=== PATIENT | male | born 1970 | race Caucasian/White ===

== ENCOUNTER 2016-12-19 21:36 | Emergency (ER) | payer OTHER ==
[2016-12-19 22:06] LABS: BASOPHILS # (AUTO) 0.1 10^3/uL (0.0-0.1); BASOPHILS % (AUTO) 0.7 %; EOSINOPHILS # (AUTO) 0.2 10^3/uL (0.0-0.7); EOSINOPHILS % (AUTO) 1.9 %; HCT - HEMATOCRIT 43.6 % (42.0-52.0); HGB - HEMOGLOBIN 14.7 g/dL (14.0-18.0); LYMPHOCYTES # (AUTO) 2.2 10^3/uL (1.5-3.5); LYMPHOCYTES % (AUTO) 21.9 %; MEAN CORPUSCULAR HEMOGLOBIN 29.8 pg (27.0-31.0); MEAN CORPUSCULAR HGB CONC 33.7 g/dL (32.0-36.0); MEAN CORPUSCULAR VOLUME 88.3 fL (80.0-94.0); NEUTROPHILS # (AUTO) 6.7 10^3/uL (1.5-6.6); NEUTROPHILS % (AUTO) 65.5 %; NUCLEATED RED BLOOD CELLS AUTO 0.1 /100WBC; RED BLOOD COUNT 4.94 10^6/uL (4.70-6.10); RED CELL DISTRIBUTION WIDTH 14.9 % (12.0-15.0); UNCORRECTED WHITE BLOOD COUNT 10.2 x10^3/uL; WHITE BLOOD COUNT 10.2 x10^3/uL (4.8-10.8)
--- NOTE | 2016-12-19 22:06 | ED Physician Documentation ---
PD HPI BACK PAIN - Stated complaint Stated Complaint: LT BACK PX - Chief complaint Chief Complaint: Back Pain - History obtained from History obtained from: Patient, Friend - History of Present Illness Timing - onset: How many weeks ago (3) Timing - details: Gradual onset, Still present, Intermittant, Waxing and waning Location: Mid, Left Quality: Pain, Sharp, Tearing Associated symptoms: Other (increased frequency). No: Fever, Weakness, Numbness , Incontinent of urine, Unable to urinate Worsened by: Movement, Lifting, Palpation Similar symptoms before: No diagnosis, Work up / diagnostics Recently seen: Clinic - Additional information Additional information: Patient is a 46 year old male with no significant past medical history who is presenting to the emergency department for left flank pain. patient states that the symptoms have been going on for the last three weeks. Patient states that he saw his pmd who diagnosed him msk pain. patient states that it still is persisting. Patient denies any nausea, vomiting fever or chills but does state that he has increased frequency. Patient states that he was sneezing today and it was making his symptoms worse. Review of Systems Constitutional: denies: Fever, Chills Eyes: denies: Decreased vision Ears: denies: Ear pain, Drainage/discharge Nose: denies: Congestion Throat: denies: Sore throat Cardiac: denies: Chest pain / pressure, Palpitations Respiratory: denies: Dyspnea, Cough, Wheezing GI: denies: Nausea, Vomiting, Constipation, Diarrhea : reports: Frequency. denies: Dysuria, Incontinent, Discharge Skin: denies: Rash, Lesions, Abrasion (s) Musculoskeletal: reports: Back pain. denies: Extremity pain, Joint pain Immunocompromised: denies: Immunocompromised PD PAST MEDICAL HISTORY - Past Medical History Cardiovascular: Hypertension, High cholesterol Respiratory: Asthma, Sleep apnea, CPAP use GI: GERD : None HEENT: None Musculoskeletal: Other Derm: Psoriasis, Other - Past Surgical History Ortho: Other - Present Medications Home Medications: Ambulatory Orders Medication Instructions Recorded Confirmed Albuterol [Ventolin Hfa] 2 puffs INH Q4H PRN 08/30/13 08/30/13 Aspirin Chewable [[place] 81 mg PO DAILY 08/30/13 08/30/13 Aspirin] Divalproex Sodium [Depakote] 500 mg PO BID 08/30/13 08/30/13 Esomeprazole Magnesium [Nexium] 20 mg PO 08/30/13 08/30/13 Fluticasone 110 Mcg [Flovent] 1 puffs INH BID 08/30/13 08/30/13 Meloxicam [Mobic] 15 mg PO 08/30/13 08/30/13 Rizatriptan Benzoate [Maxalt] 10 mg PO PRN 08/30/13 09/12/13 Simvastatin [Zocor] 20 mg PO QPM 08/30/13 08/30/13 Verapamil HCl [Verapamil ER] 240 mg PO QPM 08/30/13 08/30/13 Sildenafil Citrate [Viagra] 100 mg PO 09/12/13 09/12/13 Lidocaine Patch 5% [Lidoderm Patch] 1 each TOP DAILY #10 patch 12/19/16 - Allergies Allergies/Adverse Reactions: Allergies Allergy/AdvReac Type Severity Reaction Status Date / Time No Known Drug Allergies Allergy Verified 12/19/16 21:43 PD ED PE NORMAL - Vitals Vital signs reviewed: Yes - General General: Alert and oriented X 3, No acute distress, Well developed/nourished - HEENT HEENT: Atraumatic, PERRL - Neck Neck: Supple, no meningeal sign - Cardiac Cardiac: RRR, No murmur - Respiratory Respiratory: No respiratory distress, Clear bilaterally - Abdomen Abdomen: Soft, Non distended - Derm Derm: Normal color, Warm and dry, No rash - Extremities Extremities: No deformity, Normal ROM s pain, No edema - Neuro Neuro: Alert and oriented X 3, No motor deficit, No sensory deficit, Normal speech - Psych Psych: Normal mood, Normal affect PD ED PE EXPANDED - HEENT HEENT: Dry mucous membranes - Back Back: Other (tenderness over left flank, and mid axillary region, no ecchymosis , no rash) Results - Vitals Vitals: Vital Signs - 24 hr 12/19/16 12/20/16 21:39 00:00 Temperature 36.4 C L Heart Rate 96 90 Respiratory 16 18 Rate Blood Pressure 154/93 H 145/90 H O2 Saturation 96 96 Oxygen O2 Source Room air - Labs Labs: Laboratory Tests 12/19/16 12/19/16 12/19/16 21:57 21:57 23:04 WBC 10.2 RBC 4.94 Hgb 14.7 Hct 43.6 MCV 88.3 MCH 29.8 MCHC 33.7 RDW 14.9 Plt Count 200 MPV 8.0 Neut # 6.7 H Lymph # 2.2 [place] # 1.0 Eos # 0.2 Baso # 0.1 Absolute Nucleated RBC 0.01 Nucleated RBC % 0.1 Sodium 139 Potassium 3.6 Chloride 103 Carbon Dioxide 27 Anion Gap 9.0 BUN 12 Creatinine 1.0 Estimated GFR (MDRD) 81 L Glucose 102 H Calcium 9.1 Total Bilirubin 0.4 AST 26 ALT 37 Alkaline Phosphatase 65 Total Protein 7.6 Albumin 4.5 Globulin 3.1 Albumin/Globulin Ratio 1.5 Lipase 29 Urine Color YELLOW Urine Clarity CLEAR Urine pH 6.5 Ur Specific [place] 1.025 Urine Protein NEGATIVE Urine Glucose (UA) NEGATIVE Urine Ketones NEGATIVE Urine Occult Blood NEGATIVE Urine Nitrite NEGATIVE Urine Bilirubin NEGATIVE Urine Urobilinogen 1 (NORMAL) Ur Leukocyte Esterase NEGATIVE Ur Microscopic Review NOT INDICATED Urine Culture Comments NOT INDICATED PD MEDICAL DECISION MAKING - ED course Complexity details: reviewed old records, reviewed results, re-evaluated patient , considered differential, d/w patient ED course: Patient was seen and examined at bedside. patient was well appearing but mild pain. labs were drawn. patient was treated with toradol for his pain. Urine was collected and within normal limits. there was no indication for further testing as the pain was likely msk in nature. patient was treated with a lidoderm patch and was stable for discharge home with outpatient follow up. Departure - Departure Disposition: 01 Home, Self Care Clinical Impression: Back pain Condition: Good Instructions: ED Acute Pain [facility] Follow-Up: Rafita Brown ARNP [Primary Care Provider] - Within 1 week Prescriptions: Lidocaine Patch 5% [Lidoderm Patch] 1 each TOP DAILY #10 patch Comments: Your diagnostics today were within normal limits. Your pain is likely musculoskeletal in nature. You should take motrin or tylenol as needed for pain , and you may use the topical patches as well. You should follow up with your pmd if your symptoms persist. You should return to the emergency department for chest pain, shortness of breath or new rashes. Discharge Date/Time: 12/20/16 00:00
[2016-12-19] MEDS ORDERED: KETOROLAC 60 MG/2 ML VIAL IM STA (22:07)
[2016-12-19 22:19] LABS: ALBUMIN/GLOBULIN RATIO 1.5 (1.0-2.2); BILIRUBIN,TOTAL 0.4 mg/dL (0.2-1.0); CALCIUM 9.1 mg/dL (8.5-10.3); POTASSIUM 3.6 mmol/L (3.5-5.0); TOTAL PROTEIN 7.6 g/dL (6.7-8.2)
[2016-12-19] MEDS ORDERED: KETOROLAC 60 MG/2 ML VIAL ONE (22:19)
[2016-12-19 23:11] LABS: BILIRUBIN,URINE NEGATIVE (NEGATIVE); PH,URINE 6.5 PH (5.0-7.5)
[2016-12-19 23:25] LABS: UA CHARGE (STRIP ONLY) YES; UR CULTURE IF IND NOT INDICATED
[2016-12-19] MEDS ORDERED: LIDOCAINE PATCH 5% TOP PRN (23:44)
[2016-12-20] VITALS: BP 145/90
[2016-12-20] MEDS ORDERED: LIDOCAINE PATCH 5% TOP ONE
== END 2016-12-20 | disposition home or self-care (01) ==
LOC: ED 21:36
DX: M54.9 Dorsalgia, unspecified (principal); R10.32 Left lower quadrant pain; I10 Essential (primary) hypertension; E78.00 Pure hypercholesterolemia, unspecified; J45.909 Unspecified asthma, uncomplicated; G47.30 Sleep apnea, unspecified; K21.9 Gastro-esophageal reflux disease without esophagitis; Z79.82 Long term (current) use of aspirin
CPT/HCPCS: 36415; 80053; 81003; 83690; 85025; 96372; 99283; A9270; 81001; 87086

== ENCOUNTER 2023-04-19 07:50 | Outpatient (CLI) | payer OTHER ==
--- NOTE | 2023-04-19 15:58 | MRI Report ---
PROCEDURE: Shoulder RT WO INDICATIONS: RIGHT SHOULDER PAIN TECHNIQUE: Noncontrast oblique coronal T2 fast spin echo with fat saturation, oblique sagittal T1 spin echo and T2 fast spin echo with fat saturation, axial T1 spin echo and T2 fast spin echo with fat saturation t hrough the shoulder. COMPARISON: None. FINDINGS: Image quality: Excellent. Rotator cuff: Low-grade articular and bursal surface partial-thickness tear involving distal supraspi natus at its insertion on humeral head is seen extending to musculotendinous junction. Distal infrasp inatus and subscapularis tendinosis is seen. No full-thickness rotator cuff tendon rupture. Mild supr aspinatus muscle atrophy is noted on sagittal images. Bones and bursae: No bone marrow contusions or fractures. Mild to moderate acromioclavicular joint o steoarthritic changes are seen with joint space narrowing and downward osteophyte depressing on muscu lotendinous junction of supraspinatus. The acromion demonstrates conventional anatomy, without an os acromiale. Small amount of joint effusion and subacromial subdeltoid bursal fluid is seen, no gross l oose bodies. Capsule and soft tissues: There is fraying of anterior inferior labrum with T2 hyperintense signal at 5 to 6:00 position concerning for anterior inferior labral tear. The long head of the biceps tendon demonstrates normal location and morphology. The rotator interval appears normal, without fibrosis. The coracohumeral ligament is normal in thickness. IMPRESSION: 1. Low-grade articular and bursal surface partial-thickness tear involving distal supraspinatus exten ding to musculotendinous junction. Distal infraspinatus and subscapularis tendinosis. No full-thickne ss rotator cuff tendon rupture. No muscle atrophy. 2. Mild to moderate acromioclavicular joint osteoarthritis. No fracture or dislocation. Small amount of joint effusion and subacromial subdeltoid bursal fluid. No gross loose bodies. 3. Suggestion of anterior inferior labral tear at 5 to 6:00 position. Reviewed by: Vu Moore MD on 04/19/2023 3:57 PM PST Approved by: Vu Moore MD on 04/19/2023 3:57 PM PST Station ID: [id number]
== END 2023-04-19 07:51 | disposition home or self-care (01) ==
LOC: DI 07:50
PROVIDERS: ATTEND Nurse Practitioner Family
DX: M75.111 Incomplete rotator cuff tear or rupture of right shoulder, not specified as traumatic (principal); M75.81 Other shoulder lesions, right shoulder; M19.011 Primary osteoarthritis, right shoulder; M25.411 Effusion, right shoulder; M75.51 Bursitis of right shoulder